=== PATIENT | male | born 1960 | race Caucasian/White ===

== ENCOUNTER 2020-05-15 23:30 | Emergency (ER) | payer OTHER ==
[2020-05-15 23:49] VITALS: BP 127/84; PULSE 87; TEMP 98.3; BMI 38.0
--- NOTE | 2020-05-16 00:12 | PDOC ---
History of Present Illness - General Chief Complaint: Syncope/Near Syncope Stated Complaint: dizzy/syncope Time Seen by Provider: 05/15/20 23:36 History Source: Patient Exam Limitations: No Limitations - History of Present Illness Initial Comments: 05/16/20 00:31 This is a 59-year-old male who comes in complaining of a near syncope type event. Patient said he has been under tremendous amount of stress at work and that has had a syncope event in the past secondary to stress. Patient said he had a complete work-up but during his last syncope event including CAT scan MRI Dopplers and everything came back negative. Last syncopal event was approximately 5 years ago. 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 Patient denies any history of chest pain, cough, congestion, shortness of breath or any other symptoms. As per patient he had a brief e pisode lasting a few seconds where he was unresponsive or zoned out however he did not lose postural control. He only was unaware of his surroundings for a few seconds. Allergies: as per nursing notes Past Medical History: Diabetes and high cholesterol Social history: Lives with family. No smoking. No alcohol. No illicit drugs. Surgical history: None General: No fevers or chills, no weakness, no weight loss HEENT: No change in vision. No sore throat,. No ear pain CardioVascular: no chest discomfort. No shortness of breath Respiratory:No cough, or wheezing. Gastrointestinal: no nausea, vomiting, diarrhea or constipation, No rectal bleeding Genitourinary: No dysuria, hematuria, or frequency Musculoskeletal: No joint or muscle pain or swelling Neurologic: No headache, vertigo, dizziness or loss of consciousness, near syncope as per HPI Psychiatric: nor depression Skin: No rashes or easy bruising Endocrine: no increased thirst or abnormal weight change Allergic: no skin or latex allergy All other systems reviewed and normal Exam: General: Well-nourished well-developed individual, no acute distress HEENT: Throat: Normal, tonsils normal, no erythema or exudate Neck: Supple, no meningeal signs, no lymphadenopathy Eyes::Pupils equal reactive and round, extraocular motion intact Chest: Nontender to palpation Cardiac: S1-S2 normal, regular rate and rhythm, no murmurs rubs or gallops Respiratory: Lungs clear to auscultation bilateral Abdomen: Soft, nondistended, normal bowel sounds, there is no tenderness on palpation diffusely Extremities: Warm, dry, no cyanosis, clubbing, or edema Skin: No rashes Neuro: Alert and oriented x3, CN II - XII intact, nonfocal exam with normal strength, normal sensation, normal reflexes, normal gait, Psych: Normal mood and affect Assessment and plan: This is a 59-year-old male with a near syncopal event.. Patient has had similar events in the past. Patient had a work-up that was unremarkable including a EKG that showed normal sinus rhythm at a rate of [address]-T wave changes completely normal EKG. Patient's blood work was unremarkable and his fingerstick blood sugar here in the ED was normal. Patient discharged he will follow-up with his primary care doctor as needed. Past History - Medical History Allergies/Adverse Reactions: Allergies Allergy/AdvReac Type Severity Reaction Status Date / Time No Known Allergies Allergy Verified 05/16/20 00:03 Home Medications: Ambulatory Orders Aspirin 81 mg PO DAILY 05/16/20 Atorvastatin Ca [Lipitor] 10 mg PO HS 05/16/20 Empagliflozin [Jardiance] 10 mg PO DAILY 05/16/20 Lisinopril 20 mg PO DAILY 05/16/20 Metformin HCl [Glucophage] 1,000 mg PO BID 05/16/20 HTN: Yes Hypercholesterolemia: Yes - Psycho-Social/Smoking History Smoking History: Never smoked Number of Cigarettes Smoked Daily: 0 *Physical Exam - Vital Signs Last Vital Signs Temp Pulse Resp BP Pulse Ox 98.3 F 87 17 127/84 99 05/15/20 23:46 05/15/20 23:46 05/15/20 23:46 05/15/20 23:46 05/15/20 23:46 ED Treatment Course - LABORATORY CBC & Chemistry Diagram: 05/15/20 23:30 05/15/20 23:30 - ADDITIONAL ORDERS Additional order review: Laboratory Results 05/16/20 05/15/20 05/15/20 00:01 23:30 23:30 Sodium 141 Potassium 3.7 Chloride 108 H Carbon Dioxide 23 Anion Gap 10 BUN 15.2 Creatinine 1.3 Est GFR (CKD-EPI)AfAm 68.74 Est GFR (CKD-EPI)NonAf 59.31 POC Glucometer 130 Random Glucose 120 H Calcium 9.0 Total Bilirubin 1.3 H AST 7 L ALT 23 Alkaline Phosphatase 90 Creatine Kinase Cancelled Troponin I < 0.02 Total Protein 7.1 Albumin 3.9 05/16/20 05/15/20 00:01 23:30 RBC 5.86 H MCV 83.4 MCHC 33.0 RDW 14.8 MPV 9.8 Neutrophils % 55.7 Lymphocytes % 34.6 Monocytes % 6.7 Eosinophils % 2.3 Basophils % 0.7 POC Glucometer 130 Discharge - Discharge Information Problems reviewed: Yes Clinical Impression/Diagnosis: Near syncope Condition: Stable Disposition: HOME - Admission No - Follow up/Referral - Patient Discharge Instructions Additional Instructions: Follow-up with a fur plucker this week Return to the emergency department immediately with ANY new, persistent or worsening symptoms. Continue any medications as previously prescribed by your physician. You should follow up with your primary doctor as soon as possible regarding kai echeverria's emergency department visit. . Please make sure your doctor reviews the results of your emergency evaluation. Thank you for coming to the Emergency Department today for your care. It was a pleasure to see you today. Please note that your evaluation is INCOMPLETE until you follow-up with your doctor. - Post Discharge Activity
[2020-05-16 00:56] LABS: BASO % 0.7 % (0-2.0); EOS % 2.3 % (0-4.5); HEMATOCRIT 48.9 % (35.4-49); HEMOGLOBIN 16.1 GM/dL (11.7-16.9); LYMPH % 34.6 % (8-40); MCH 27.5 pg (25.7-33.7); MEAN CELL VOLUME 83.4 fl (80-96); MEAN PLT VOLUME 9.8 fl (7.5-11.1); MONO % 6.7 % (3.8-10.2); NEUT % 55.7 % (42.8-82.8); PLATELET COUNT 261 K/MM3 (134-434); RBC 5.86 M/mm3 (4.00-5.60); RDW 14.8 % (11.9-15.9); WHITE BLOOD COUNT 8.4 K/mm3 (4.0-10.0)
[2020-05-16 01:25] LABS: ALBUMIN 3.9 g/dl (3.4-5.0); BILIRUBIN,TOTAL 1.3 mg/dL (0.2-1); BLOOD UREA NITROGEN 15.2 mg/dL (7-18); CREATININE 1.3 mg/dL (0.55-1.3); POTASSIUM 3.7 mmol/L (3.5-5.1); TOT PROT 7.1 g/dl (6.4-8.2)
--- NOTE | 2020-05-16 10:28 | EKG ---
Test Reason : Blood Pressure : / mmHG Vent. Rate : 083 BPM Atrial Rate : 083 BPM P-R Int : 154 ms QRS Dur : 082 ms QT Int : 368 ms P-R-T Axes : 045 041 012 degrees QTc Int : 432 ms NORMAL SINUS RHYTHM NORMAL ECG NO PREVIOUS ECGS AVAILABLE Confirmed by MD Anatoliy, Alfredo ([id number]) on 05/16/2020 10:28:14 AM Referred By: COLLEEN VARELA Confirmed By:Alfredo Cope MD
== END 2020-05-16 01:36 | disposition home or self-care (01) ==
LOC: FER 23:30
DX: R55 Syncope and collapse (principal)
CPT/HCPCS: 36415; 80053; 82962; 84484; 85025; 93005; 99284-25